=== PATIENT | female | born 1990 | race Caucasian/White ===

== ENCOUNTER 2024-04-07 10:04 | Emergency (ER) | payer MEDICAID ==
[~2024-04-07] VITALS: Ht 170.2 cm; Wt 68.2 kg
[2024-04-07] MEDS: diphenhydrAMINE 50 mg/ml inj IV ONE (11:52)
[2024-04-07] MEDS: metoclopramide 5 mg/ml inj IV ONE (11:52)
[2024-04-07] MEDS: diphenhydrAMINE 25mg capsule PO STA (12:22)
[2024-04-07] MEDS: metoclopramide 10mg tablet PO STA (12:23)
[2024-04-07] MEDS: ketorolac trometh 30MG/ML vial 30 MG/ML VIAL IM ONE (13:18)
[2024-04-07] MEDS: dexamethasone sod phosphate 10mg/ml inj IM STA (13:18)
[2024-04-07] MEDS ORDERED: LIDO700A32 TOP (13:42)
[2024-04-07] MEDS ORDERED: CYCL-1 PO (13:42)
[2024-04-07 13:47] VITALS: BP 134/82; PULSE 74; RESP 16; TEMP 98.4; O2SAT 99
== END 2024-04-07 13:48 | disposition home or self-care (01) ==
LOC: ER 10:05
DX: M54.2 Cervicalgia (principal); M79.601 Pain in right arm
CPT/HCPCS: 72040; 73030; 93005; 93880; 93971; 96372; 99285; J1100; J1885

== ENCOUNTER 2024-04-29 15:31 | Emergency (ER) | payer MEDICAID ==
[~2024-04-29] VITALS: Ht 170.2 cm; Wt 65.0 kg
[~2024-04-29 15:31] MED LIST: CYCL-1 PO; LIDO700A32 TOP
[2024-04-29 15:42] VITALS: BP 120/91; PULSE 109; TEMP 98; O2SAT 98
[2024-04-29 16:09] LABS: BASOPHILS % (AUTO) 0.6 % (0-1); EOSINOPHILS # (AUTO) 0.1 X10'3 (0-0.9); EOSINOPHILS % (AUTO) 1.3 % (0-6); HEMATOCRIT 41.9 % (35.0-45.0); HEMOGLOBIN 14.1 g/dl (12.0-16.0); LYMPHOCYTES # (AUTO) 1.6 X10'3 (1.1-4.8); LYMPHOCYTES % (AUTO) 19.7 % (21-51); MEAN CORPUSCULAR HEMOGLOBIN 32.6 PG (27.0-31.0); MEAN CORPUSCULAR HGB CONC 33.7 g/dL (33.0-36.5); MEAN CORPUSCULAR VOLUME 96.7 FL (78-98); MEAN PLATELET VOLUME 7.6 FL (7.4-10.4); MONOCYTES # (AUTO) 0.6 X10'3 (0-0.9); MONOCYTES % (AUTO) 7.5 % (2-12); NEUTROPHILS # (AUTO) 5.8 X10'3 (1.8-7.7); NEUTROPHILS % (AUTO) 70.9 % (42-75); PLATELET COUNT 259 X10'3 (140-440); RED BLOOD COUNT 4.34 X10'6 (4.20-5.60); RED CELL DISTRIBUTION WIDTH 12.9 % (11.5-14.5); WHITE BLOOD COUNT 8.2 X10'3 (4.5-11.0)
[2024-04-29 16:31] VITALS: RESP 16
[2024-04-29 16:51] LABS: ALANINE AMINOTRANSFERASE 19 U/L (12-78); ALBUMIN 4.2 G/DL (3.4-5.0); ALBUMIN/GLOBULIN RATIO 1.4 (1.1-1.5); ALKALINE PHOSPHATASE 47 IU/L (46-116); ANION GAP 5 (8-16); ASPARTATE AMINO TRANSFERASE 11 U/L (10-37); BILIRUBIN,TOTAL 0.6 MG/DL (0.1-1.0); BLOOD UREA NITROGEN 8 MG/DL (7-18); BUN/CREATININE RATIO 9.6 (10.0-20.0); CHLORIDE 106 MMOL/L (99-107); CREATININE 0.83 MG/DL (0.40-0.90); GLUCOSE 109 MG/DL (70-104); POTASSIUM 3.9 MMOL/L (3.5-5.1); PRO BRAIN NATRIURETIC PEPTIDE < 30 PG/ML (0-125); SODIUM 137 MMOL/L (135-145); TOTAL CARBON DIOXIDE 25.8 MMOL/L (24-32); TOTAL PROTEIN 7.3 G/DL (6.4-8.2); eCRCL 95 ML/MIN; eGFR 80 ML/MIN
[2024-04-29 17:35] LABS: FREE T4 (FREE THYROXINE) 1.25 NG/DL (0.73-1.40); THYROID STIMULATING HORMONE 1.07 ulU/ml (0.34-4.50)
== END 2024-04-29 18:03 | disposition home or self-care (01) ==
LOC: ER 15:32
DX: R20.2 Paresthesia of skin (principal); Z79.899 Other long term (current) drug therapy
CPT/HCPCS: 36415; 80053; 83880; 84439; 84443; 84484; 85025; 93005; 99284